=== PATIENT | female | born 1935 | race Caucasian/White ===

== ENCOUNTER → 2017-01-23 | Outpatient (CLI) | payer MEDICARE, OTHER ==
[~2017-01-23] MED LIST: ASPI81TA19; HYDR-3533 PO; LISI-519 PO; PERC5TAB12 PO; ZOFR4TAB3 SL
[2017-01-23 09:44] LABS: HEMATOCRIT 38.6 % (35.0-46.0); MEAN CELL VOLUME 87.3 FL (80.0-100.0); MEAN CORPUSCULAR HEMOGLOBIN 29.5 PG (27.0-34.0); MEAN CORPUSCULAR HGB CONC 33.9 % (32.0-36.0); PLATELET COUNT 241 TH/MM3 (150-450); RED BLOOD COUNT 4.42 MIL/MM3 (4.00-5.30); RED CELL DISTRIBUTION WIDTH 13.4 % (11.6-17.2); WHITE BLOOD COUNT 6.1 TH/MM3 (4.0-11.0)
[2017-01-23 09:46] LABS: BLOOD, URINE NEG (NEG); GLUCOSE,URINE NEG (NEG); KETONE, URINE NEG (NEG); NITRITE,URINE NEG (NEG); URINE COLOR LIGHT-YELLOW (YELLW/STRAW)
[2017-01-23 09:48] LABS: HEMO FLAGS AUTO DIFF
[2017-01-23 09:50] LABS: COMMENT (UR) CULT NOT INDICATED; CULTURE IF INDICATED CULT NOT INDICATED
[2017-01-23 10:07] LABS: CREATININE RANDOM URINE 67 MG/DL (27-300)
[2017-01-23 10:13] LABS: BASOPHILS 1 % (0-2); EOSINOPHILS 3 % (0-4); NEUTROPHIL # MANUAL DIFF 3.4 TH/MM3 (1.8-7.7); POLYS (SEG NEUTROPHILS) 55 % (16-70); WBC DIFF SAMPLE 100
[2017-01-23 10:14] LABS: PLATELET ESTIMATE SMEAR NORMAL (NORMAL); PLATELET MORPHOLOGY NORMAL (NORMAL); SCAN/DIFF FINAL DIFF MANUAL
[2017-01-23 10:17] LABS: MICRO ALBUMIN RANDOM URINE RAW LESS THAN 5.0 MG/L (0.0-30.0); MICROALBUMIN/CREAT RATIO RAND 7 MG/G CRE (0-30)
[2017-01-23 10:40] LABS: ALKALINE PHOSPHATASE 62 U/L (45-117); ALT (GPT) 23 U/L (10-53); ANION GAP 7 MEQ/L (5-15); AST (GOT) 19 U/L (15-37); BICARBONATE 30.7 MEQ/L (21.0-32.0); BLOOD UREA NITROGEN 16 MG/DL (7-18); CHLORIDE 103 MEQ/L (98-107); FREE T3 2.13 PG/ML (2.18-3.98); FREE T4 0.77 NG/DL (0.76-1.46); GLOMERULAR FILTRATION RATE 49 ML/MIN (>89); GLUCOSE,FASTING 90 MG/DL (74-99); POTASSIUM 4.4 MEQ/L (3.5-5.1); SODIUM (NA) 141 MEQ/L (136-145); TOTAL BILIRUBIN ADULT 0.7 MG/DL (0.2-1.0)
== END ==
LOC: CLAB 09:21
PROVIDERS: ATTEND Family Medicine
DX: E78.5 Hyperlipidemia, unspecified (principal); I10 Essential (primary) hypertension; E66.9 Obesity, unspecified
CPT/HCPCS: 36415; 80053; 81001; 82043; 82607; 84439; 84443; 84481; 85007; 85027

== ENCOUNTER → 2017-06-12 | Outpatient (CLI) | payer MEDICARE, OTHER ==
[2017-06-12 09:42] LABS: AUTOMATED NEUTROPHIL # 2.9 TH/MM3 (1.8-7.7); BASOPHIL # 0.2 TH/MM3 (0-0.2); BASOPHIL % 2.4 % (0.0-2.0); EOSINOPHIL # 0.3 TH/MM3 (0-0.4); EOSINOPHIL % 4.8 % (0.0-4.0); HEMATOCRIT 42.5 % (35.0-46.0); HEMO FLAGS DIFF FINAL; LYMPH % 38.7 % (9.0-44.0); LYMPHOCYTE # 2.4 TH/MM3 (1.0-4.8); MEAN CELL VOLUME 90.5 FL (80.0-100.0); MEAN CORPUSCULAR HEMOGLOBIN 30.1 PG (27.0-34.0); MEAN CORPUSCULAR HGB CONC 33.2 % (32.0-36.0); MONO % 8.2 % (0.0-8.0); NEUT % 45.9 % (16.0-70.0); PLATELET COUNT 207 TH/MM3 (150-450); RED BLOOD COUNT 4.69 MIL/MM3 (4.00-5.30); RED CELL DISTRIBUTION WIDTH 14.1 % (11.6-17.2); WHITE BLOOD COUNT 6.2 TH/MM3 (4.0-11.0)
[2017-06-12 10:06] LABS: ANION GAP 6 MEQ/L (5-15); AST (GOT) 21 U/L (15-37); BICARBONATE 31.8 MEQ/L (21.0-32.0); BLOOD UREA NITROGEN 25 MG/DL (7-18); CHLORIDE 103 MEQ/L (98-107); GLOMERULAR FILTRATION RATE 40 ML/MIN (>89); GLUCOSE,FASTING 90 MG/DL (74-99); POTASSIUM 4.6 MEQ/L (3.5-5.1); SODIUM (NA) 141 MEQ/L (136-145)
[2017-06-12 10:17] LABS: BACTERIA, URINE OCC /hpf; BLOOD, URINE TRACE (NEG); COMMENT (UR) CULTURE INDICATED; CULTURE IF INDICATED CULTURE INDICATED; GLUCOSE,URINE NEG (NEG); KETONE, URINE NEG (NEG); MUCUS URINE FEW /lpf (OCC); NITRITE,URINE NEG (NEG); PH, URINE 5.5 (5.0-8.5); SQUAMOUS EPITHELIAL CELL URINE <1 /hpf (0-5); URINE COLOR YELLOW (YELLW/STRAW)
[2017-06-12 10:31] LABS: ALKALINE PHOSPHATASE 55 U/L (45-117); ALT (GPT) 26 U/L (10-53); FREE T3 1.82 PG/ML (2.18-3.98); FREE T4 0.74 NG/DL (0.76-1.46); HDL CHOLESTEROL 83.3 MG/DL (40.0-60.0); LDL CHOLESTEROL 134 MG/DL (0-99); TOTAL BILIRUBIN ADULT 0.7 MG/DL (0.2-1.0)
[2017-06-12 10:58] LABS: MICRO ALBUMIN RANDOM URINE RAW 19.6 MG/L (0.0-30.0)
== END ==
LOC: CLAB 09:10
PROVIDERS: ATTEND Family Medicine
DX: E78.9 Disorder of lipoprotein metabolism, unspecified (principal); R53.83 Other fatigue; R82.90 Unspecified abnormal findings in urine
CPT/HCPCS: 36415; 80053; 80061; 81001; 82043; 82607; 84439; 84443; 84481; 85025; 87086

== ENCOUNTER → 2017-12-14 | Outpatient (CLI) | payer MEDICARE, OTHER ==
[2017-12-14 14:21] LABS: FOLATE GREATER THAN 20.0 NG/ML (3.1-17.5)
[2017-12-14 19:35] LABS: ALB/GLOB RATIO (SPE) 1.72 (1.39-2.23)
[2017-12-17 10:45] LABS: ANA SCREEN POS (NEG)
[2017-12-18 09:25] LABS: METHYLMALONIC ACID 0.27 nmol/mL (<=0.40)
[2017-12-19 03:51] LABS: NEURONAL NUCLEAR(HU) AB SCREEN FLUORESCENCE NOTED (NEGATIVE)
[2017-12-19 14:27] LABS: ANA PATTERN DIFFUSE
== END ==
LOC: CLAB 12:45
PROVIDERS: ATTEND Specialist
DX: G47.62 Sleep related leg cramps (principal); I67.89 Other cerebrovascular disease; M31.6 Other giant cell arteritis; A53.0 Latent syphilis, unspecified as early or late; E53.1 Pyridoxine deficiency; D50.8 Other iron deficiency anemias; G04.81 Other encephalitis and encephalomyelitis; G60.9 Hereditary and idiopathic neuropathy, unspecified; M60.9 Myositis, unspecified; M79.1 Myalgia
CPT/HCPCS: 36415; 82164; 82550; 82607; 82746; 83921; 84165; 84181; 84207; 84425; 85652; 86038; 86039; 86255; 86592

== ENCOUNTER 2017-12-31 19:44 | Emergency (ER) | payer MEDICARE, OTHER ==
[~2017-12-31 19:44] MED LIST changes: -GABA300C5 PO
[2017-12-31 19:57] VITALS: BP 168/72; PULSE 50; RESP 14; TEMP 98.7; O2SAT 96
--- NOTE | 2017-12-31 21:04 | RADRPT ---
EXAM DATE/TIME: 12/31/2017 20:17 [facility] COMPARISON: No previous studies available for comparison. INDICATIONS : Fall. Left central wrist pain. MEDICAL HISTORY : Hiatal hernia. SURGICAL HISTORY : Appendectomy. Cholecystectomy. Hysterectomy. ENCOUNTER: Initial ACUITY: 1 day PAIN SCORE: 6/10 LOCATION: Left middle wrist FINDINGS: Three view examination of the left wrist demonstrates no soft tissue swelling, dislocation, or fractu re. The carpal bones are in normal alignment. The joint spaces are maintained. Bony mineralization is normal. CONCLUSION: 1. No acute findings. Mychal Shoemaker MD on December 31, 2017 at 21:01 Board Certified Radiologist. This report was verified electronically.
--- NOTE | 2017-12-31 21:16 | RADRPT ---
EXAM DATE/TIME: 12/31/2017 20:43 [facility] COMPARISON: No previous studies available for comparison. INDICATIONS : Trauma, patient fell, hit head. RADIATION DOSE: 56.35 CTDIvol (mGy) MEDICAL HISTORY : Cardiovascular disease. Hypertension. SURGICAL HISTORY : None. ENCOUNTER: Initial ACUITY: 1 day PAIN SCALE: 4/10 LOCATION: cranial TECHNIQUE: Multiple contiguous axial images were obtained of the head. Using automated exposure control and adj ustment of the mA and/or kV according to patient size, radiation dose was kept as low as reasonably a chievable to obtain optimal diagnostic quality images. DICOM format image data is available electro nically for review and comparison. FINDINGS: CEREBRUM: The ventricles are normal for age. No evidence of midline shift, mass lesion, hemorrhage or acute in farction. No extra-axial fluid collections are seen. POSTERIOR FOSSA: The cerebellum and brainstem are intact. The 4th ventricle is midline. The cerebellopontine angle i s unremarkable. EXTRACRANIAL: The visualized portion of the orbits is intact. SKULL: The calvaria is intact. No evidence of skull fracture. CONCLUSION: Normal examination for a patient of this age. Mychal Shoemaker MD on December 31, 2017 at 21:12 Board Certified Radiologist. This report was verified electronically.
--- NOTE | 2017-12-31 21:19 | RADRPT ---
EXAM DATE/TIME: 12/31/2017 20:43 [facility] COMPARISON: No previous studies available for comparison. INDICATIONS : Trauma, patient fell, neck pain. RADIATION DOSE: 15.56 CTDIvol (mGy) MEDICAL HISTORY : Cardiovascular disease. Hypertension. SURGICAL HISTORY : None. ENCOUNTER: Initial ACUITY: 1 day PAIN SCALE: 4/10 LOCATION: neck TECHNIQUE: Volumetric scanning of the cervical spine was performed. Multiplanar reconstructions in the sagittal, coronal and oblique axial planes were performed. Using automated exposure control and adjustment o f the mA and/or kV according to patient size, radiation dose was kept as low as reasonably achievable to obtain optimal diagnostic quality images. DICOM format image data is available electronically f or review and comparison. FINDINGS: VERTEBRAE: Normal vertebral body height. ALIGNMENT: No evidence of subluxation. C2-C3: The bony spinal canal is normal in size. No evidence of disc bulge or herniation. The neural forami na are bilaterally patent. C3-C4: The bony spinal canal is normal in size. No evidence of disc bulge or herniation. The neural forami na are bilaterally patent. C4-C5: The bony spinal canal is normal in size. No evidence of disc bulge or herniation. The neural forami na are bilaterally patent. C5-C6: The bony spinal canal is normal in size. No evidence of disc bulge or herniation. The neural forami na are bilaterally patent. C6-C7: The bony spinal canal is normal in size. No evidence of disc bulge or herniation. The neural forami na are bilaterally patent. C7-T1: The bony spinal canal is normal in size. No evidence of disc bulge or herniation. The neural forami na are bilaterally patent. CONCLUSION: 1. No acute bony abnormality. No canal stenosis. Mychal Shoemaker MD on December 31, 2017 at 21:13 Board Certified Radiologist. This report was verified electronically.
--- NOTE | 2017-12-31 21:27 | RADRPT ---
EXAM DATE/TIME: 12/31/2017 20:25 [facility] COMPARISON: No previous studies available for comparison. INDICATIONS : Fall. Left shoulder pain. MEDICAL HISTORY : Hiatal hernia. SURGICAL HISTORY : Appendectomy. Cholecystectomy. Hysterectomy. ENCOUNTER: Initial ACUITY: 1 day PAIN SCORE: 3/10 LOCATION: Left shoulder FINDINGS: Multiple view examination of the left shoulder demonstrates no evidence of fracture or dislocation. The glenohumeral and acromioclavicular joints are maintained. There is normal range of motion betwee n internal and external rotation. Bony mineralization is normal. CONCLUSION: 1. No acute bony abnormality. Mychal Shoemaker MD on December 31, 2017 at 21:24 Board Certified Radiologist. This report was verified electronically.
[2017-12-31] MEDS ORDERED: GABA300C5 PO (23:26)
[2017-12-31 23:34] VITALS: BP 159/70
--- NOTE | 2017-12-31 23:36 | PD ---
HPI Chief Complaint: Fall Time Seen by Provider: 23:25 Travel History International Travel<30 days: No Contact w/Intl Traveler<30days: No Traveled to known affect area: No History of Present Illness HPI 82-year-old female presents for evaluation after mechanical fall. Prior to arrival the patient reports that she tripped at home on a box and fell, hitting her left arm against the ground and hitting her chin against the ground. There was no loss of consciousness. She is complaining of pain at the site of her chin, left wrist and left proximal arm where she has a skin tear. Pain is aching, mild, worse with movement. She denies any neck or back pain, injury to the teeth. She takes an aspirin on a regular basis. No other blood thinners. Last tetanus vaccination within 5 years. No other complaints. PFSH Past Medical History Arthritis: Yes Heart Rhythm Problems: No Cancer: No Cardiovascular Problems: Yes (HTN) High Cholesterol: Yes Chest Pain: No Congestive Heart Failure: No COPD: No Cerebrovascular Accident: No Diabetes: No Diminished Hearing: No Endocrine: No Gastrointestinal Disorders: Yes (HX GASTRIC ULCERS) GERD: No Glaucoma: No Genitourinary: No Headaches: No Hepatitis: No Hiatal Hernia: Yes (POSSIBLE ) Hypertension: Yes Immune Disorder: No Kidney Stones: No Neurologic: No Psychiatric: No Reproductive: No Respiratory: No Myocardial Infarction: No Renal Failure: No Seizures: No Sleep Apnea: No Thyroid Disease: No Ulcer: Yes (GASTRIC ) Tetanus Vaccination: < 5 Years Influenza Vaccination: Yes Menopausal: Yes Past Surgical History Abdominal Surgery: Yes AICD: No Appendectomy: Yes Body Medical Devices: NONE Cardiac Surgery: No Cholecystectomy: Yes Ear Surgery: No Endocrine Surgery: No Eye Surgery: No Genitourinary Surgery: No Gynecologic Surgery: Yes (HYSTERECTOMY) Hysterectomy: Yes Pacemaker: No Thoracic Surgery: No Tonsillectomy: Yes Other Surgery: Yes Social History Alcohol Use: Yes (occasionaly ) Tobacco Use: No Substance Use: No Allergies-Medications (Allergen,Severity, Reaction): Coded Allergies: morphine (Unverified Adverse Reaction, Severe, VOMITING, 05/29/17) Reported Meds & Prescriptions Reported Meds & Active Scripts Active Reported Gabapentin 300 Mg Cap 300 Mg PO HS Lisinopril 5 Mg Tab 2.5 Mg PO DAILY Aspir-Low (Aspirin) 81 Mg Tabdr Review of Systems Except as stated in HPI: all other systems reviewed are Neg Physical Exam Narrative GENERAL: Well-developed well-nourished female no acute distress SKIN: Warm and dry. There is a superficial skin tear to the proximal left arm. No suturable lacerations. HEAD: Atraumatic. Normocephalic. EYES: Pupils equal and round. No scleral icterus. No injection or drainage. ENT: No nasal bleeding or discharge. Mucous membranes pink and moist. NECK: Trachea midline. No JVD. CARDIOVASCULAR: Regular rate and rhythm. No murmur appreciated. RESPIRATORY: No accessory muscle use. Clear to auscultation. Breath sounds equal bilaterally. GASTROINTESTINAL: Abdomen soft, non-tender, nondistended. Hepatic and splenic margins not palpable. MUSCULOSKELETAL: Skin as noted above. There is no reproducible tenderness to palpation along the neck or back, arms. The patient maintains full range of motion of the upper extremities. NEUROLOGICAL: Awake and alert. No obvious cranial nerve deficits. Motor grossly within normal limits. Normal speech. Data Data Last Documented VS Vital Signs Date Time Temp Pulse Resp B/P (MAP) Pulse Ox O2 Delivery O2 Flow Rate FiO2 12/31/17 19:57 98.7 50 14 168/72 (104) [address] Brain W/O Iv Contrast(Rout) (12/31/17 ) Ct Cerv Spine W/O Contrast (12/31/17 ) Wrist, Complete ([id number]) (12/31/17 ) Shoulder, Complete (>2vws) (12/31/17 ) Ed Discharge Order (12/31/17 23:31) Wound Care (12/31/17 23:31) MDM Medical Decision Making Medical Screen Exam Complete: Yes Emergency Medical Condition: Yes Medical Record Reviewed: Yes Differential Diagnosis Skin tear, contusion, fracture Narrative Course CT imaging the brain and cervical spine as well as x-rays of the left wrist and shoulder were obtained in triage revealing no acute abnormalities. Local wound care was provided to the left arm. The patient is stable for discharge. Diagnosis Primary Impression: Skin tear of left upper extremity Additional Impressions: Left wrist sprain Chin contusion Departure Forms: Tests/Procedures, Work Release Enter return to work date: Jan 07, 2018 Additional Instructions: Wash the wound daily with soap and water and apply antibiotic cream and clean bandages. Take Tylenol for pain per dosing instructions on the bottle. Follow- up with primary care physician in 1-2 weeks. Return for any emergent medical conditions. Med/Other Pt SpecificInfo: Wound Care Disposition: 01 DISCHARGE HOME Condition: Stable Jose David Rose Dec 31, 2017 23:36
== END 2017-12-31 23:40 | disposition home or self-care (01) ==
LOC: NED 19:44 → NEPD 23:40
DX: S41.112A Laceration without foreign body of left upper arm, initial encounter (principal); S63.502A Unspecified sprain of left wrist, initial encounter; S00.83XA Contusion of other part of head, initial encounter; I10 Essential (primary) hypertension; E78.00 Pure hypercholesterolemia, unspecified; W18.09XA Striking against other object with subsequent fall, initial encounter; Y92.009 Unspecified place in unspecified non-institutional (private) residence as the place of occurrence of the external cause; Z88.5 Allergy status to narcotic agent; Z79.899 Other long term (current) drug therapy; E78.9 Disorder of lipoprotein metabolism, unspecified; R73.01 Impaired fasting glucose; R53.83 Other fatigue
CPT/HCPCS: 70450; 72125; 73030; 73110

== ENCOUNTER → 2017-12-31 | Outpatient (CLI) | payer MEDICARE ==
[~2017-12-31] MED LIST changes: +GABA300C5 PO
[2017-12-31 14:19] LABS: AUTOMATED NEUTROPHIL # 4.5 TH/MM3 (1.8-7.7); BASOPHIL % 0.3 % (0.0-2.0); EOSINOPHIL # 0.2 TH/MM3 (0-0.4); EOSINOPHIL % 2.5 % (0.0-4.0); HEMATOCRIT 41.5 % (35.0-46.0); HEMOGLOBIN 13.8 GM/DL (11.6-15.3); LYMPH % 33.6 % (9.0-44.0); LYMPHOCYTE # 2.7 TH/MM3 (1.0-4.8); MEAN CELL VOLUME 89.7 FL (80.0-100.0); MEAN CORPUSCULAR HEMOGLOBIN 29.8 PG (27.0-34.0); MEAN CORPUSCULAR HGB CONC 33.2 % (32.0-36.0); MEAN PLATELET VOLUME 8.6 FL (7.0-11.0); MONO % 6.6 % (0.0-8.0); MONOCYTE # 0.5 TH/MM3 (0-0.9); PLATELET COUNT 246 TH/MM3 (150-450); RED BLOOD COUNT 4.63 MIL/MM3 (4.00-5.30); RED CELL DISTRIBUTION WIDTH 13.2 % (11.6-17.2)
[2017-12-31 14:30] LABS: BACTERIA, URINE OCC /hpf; BILIRUBIN, URINE NEG (NEG); BLOOD, URINE NEG (NEG); GLUCOSE,URINE NEG (NEG); KETONE, URINE NEG (NEG); MUCUS URINE FEW /lpf (OCC); NITRITE,URINE NEG (NEG); URINE COLOR YELLOW (YELLW/STRAW); URINE LEUKOCYTE ESTERASE MOD (NEG)
[2017-12-31 14:53] LABS: ALBUMIN 3.9 GM/DL (3.4-5.0); AST (GOT) 19 U/L (15-37); BICARBONATE 31.4 MEQ/L (21.0-32.0); BLOOD UREA NITROGEN 15 MG/DL (7-18); CALCIUM 8.7 MG/DL (8.5-10.1); CHLORIDE 103 MEQ/L (98-107); CHOLESTEROL 294 MG/DL (120-200); CREATININE 1.14 MG/DL (0.50-1.00); GLOMERULAR FILTRATION RATE 46 ML/MIN (>89); GLUCOSE,FASTING 85 MG/DL (74-99); SODIUM (NA) 141 MEQ/L (136-145); TRIGLYCERIDES 91 MG/DL (42-150)
[2017-12-31 15:18] LABS: ALKALINE PHOSPHATASE 64 U/L (45-117); ALT (GPT) 25 U/L (10-53); CHOLESTEROL/ HDL RATIO 3.68 RATIO; FREE T4 0.71 NG/DL (0.76-1.46); HDL CHOLESTEROL 79.8 MG/DL (40.0-60.0); LDL CHOLESTEROL 196 MG/DL (0-99); TOTAL BILIRUBIN ADULT 0.8 MG/DL (0.2-1.0); TOTAL PROTEIN 7.6 GM/DL (6.4-8.2)
[2017-12-31 16:14] LABS: HEMOGLOBIN A1C 5.9 % (4.3-6.0)
== END ==
LOC: CLAB 13:41
PROVIDERS: ATTEND Family Medicine
DX: E78.9 Disorder of lipoprotein metabolism, unspecified (principal); R73.01 Impaired fasting glucose; R53.83 Other fatigue
CPT/HCPCS: 36415; 80053; 80061; 81001; 82043; 82607; 83036; 84439; 84443; 84481; 85025

== ENCOUNTER 2018-01-12 14:57 | Emergency (ER) | payer MEDICARE, OTHER ==
[~2018-01-12] VITALS: Ht 162.6 cm; Wt 68.0 kg
[~2018-01-12 14:57] MED LIST changes: -ASPI81TA19; +ASPI81TA19 PO; +GABA300C5 PO; -HYDR-3533 PO; -PERC5TAB12 PO; -ZOFR4TAB3 SL
[2018-01-12 15:04] VITALS: BP 129/78; PULSE 51; RESP 18; TEMP 98.9; O2SAT 96
[2018-01-12 15:30] VITALS: BP 169/70; PULSE 58; RESP 18; O2SAT 95
[2018-01-12 15:49] VITALS: BP 169/70; PULSE 51; RESP 20; O2SAT 97
[2018-01-12 15:53] VITALS: PULSE 49; RESP 20; O2SAT 97
[2018-01-12] MEDS ORDERED: methylPREDNISolone SOD SUCC 125 MG/2 ML VIAL IV PUSH ONE (16:00)
[2018-01-12] MEDS ORDERED: SODIUM CHLORIDE 0.9% FLUSH 10 ML FLUSH IVF PRN (16:00)
--- NOTE | 2018-01-12 16:07 | PD ---
HPI . Right rib pain Chief Complaint: Respiratory Symptoms Time Seen by Provider: 15:32 Travel History International Travel<30 days: No Contact w/Intl Traveler<30days: No Traveled to known affect area: No History of Present Illness HPI This patient presents with chief complaint of right rib pain associated with wheezing, cough, rhinorrhea. Onset was about 2 days ago. Symptoms have been persistent since that time. No modifying factors. She states she has had previous bronchospasm with colds. She denies a known history of asthma or COPD. The patient also reports a fall couple weeks ago. She is curious as to whether or not her right rib pain might be secondary to that fall. However, the rib pain did not start until several months after the fall and the rib pain is associated with cough, rhinorrhea and wheezing. PFSH Past Medical History Arthritis: Yes Heart Rhythm Problems: Yes (SINUS BRADYCARDIA ) Cancer: No Cardiovascular Problems: Yes (HTN, HEART MURMUR ) High Cholesterol: Yes Chest Pain: No Congestive Heart Failure: No COPD: No Cerebrovascular Accident: No Diabetes: No Diminished Hearing: No Endocrine: No Gastrointestinal Disorders: Yes (HX GASTRIC ULCERS) GERD: No Glaucoma: No Genitourinary: No Headaches: No Hepatitis: No Hiatal Hernia: Yes (POSSIBLE ) Hypertension: Yes Immune Disorder: No Kidney Stones: No Neurologic: No Psychiatric: No Reproductive: No Respiratory: No Myocardial Infarction: No Renal Failure: No Seizures: No Sleep Apnea: No Thyroid Disease: No Ulcer: Yes (GASTRIC ) Menopausal: Yes Past Surgical History Abdominal Surgery: Yes (GALLBLADDER REMOVED ) AICD: No Appendectomy: Yes Body Medical Devices: NONE Cardiac Surgery: No Cholecystectomy: Yes Ear Surgery: No Endocrine Surgery: No Eye Surgery: No Genitourinary Surgery: No Gynecologic Surgery: Yes (HYSTERECTOMY) Hysterectomy: Yes Pacemaker: No Thoracic Surgery: No Tonsillectomy: Yes Other Surgery: Yes Social History Alcohol Use: Yes (occasionaly ) Tobacco Use: No Substance Use: No Allergies-Medications (Allergen,Severity, Reaction): Coded Allergies: morphine (Unverified Adverse Reaction, Severe, VOMITING, 05/29/17) Reported Meds & Prescriptions Reported Meds & Active Scripts Active Reported Keflex (Cephalexin) 500 Mg Cap 500 Mg PO Q8H 10 Days Lipitor (Atorvastatin Calcium) 20 Mg Tab 20 Mg PO HS Lisinopril 2.5 Mg Tab 2.5 Mg PO DAILY Gabapentin 300 Mg Cap 300 Mg PO HS Aspir-Low (Aspirin) 81 Mg Tabdr 81 Mg PO DAILY Review of Systems Except as stated in HPI: all other systems reviewed are Neg General / Constitutional: No: Fever, Chills HENT: Positive: Rhinorrhea Cardiovascular: Positive: Chest Pain or Discomfort Respiratory: Positive: Cough, Shortness of Breath, Wheezing Physical Exam Narrative GENERAL: Awake and alert and in no acute distress. SKIN: warm/dry. HEAD: Normocephalic. Atraumatic. EYES: Pupils equal and round. No scleral icterus. No injection or drainage. ENT: No nasal bleeding or discharge. Mucous membranes pink and moist. NECK: Trachea midline. Full range of motion without pain.. CARDIOVASCULAR: Regular rate and rhythm. Heart sounds normal. RESPIRATORY: No accessory muscle use. No bruising of the chest wall. Diffuse expiratory wheezing. GASTROINTESTINAL: Abdomen soft. Nontender. Bowel sounds present. Nondistended. MUSCULOSKELETAL: No obvious deformities. NEUROLOGICAL: Awake and alert. No obvious cranial nerve deficits. Motor grossly within normal limits. Normal speech. PSYCHIATRIC: Appropriate mood and affect; insight and judgment normal. Distress Data Data Last Documented VS Vital Signs Date Time Temp Pulse Resp B/P (MAP) Pulse Ox O2 Delivery O2 Flow Rate FiO2 01/12/18 16:31 95 21 01/12/18 15:53 49 20 Room Air 01/12/18 15:04 98.9 Orders Orders Electrocardiogram (01/12/18 ) Complete Blood Count With Diff (01/12/18 15:50) Comprehensive Metabolic Panel (01/12/18 15:50) B-Type Natriuretic Peptide (01/12/18 15:50) Troponin I (01/12/18 15:50) Iv Access Insert/Monitor (01/12/18 15:50) Ecg Monitoring (01/12/18 15:50) Oximetry (01/12/18 15:50) Chest, Single Ap (01/12/18 15:50) Sodium Chloride 0.9% Flush (Ns Flush) (01/12/18 16:00) Methylprednisolone So Succ Inj (Solumedr (01/12/18 16:00) Albuterol-Ipratropium Neb (Duoneb Neb) (01/12/18 16:00) Albuterol-Ipratropium Neb (Duoneb Neb) (01/12/18 17:15) Labs Laboratory Tests Test 01/12/18 16:04 White Blood Count 5.4 TH/MM3 Red Blood Count 4.17 MIL/MM3 Hemoglobin 12.4 GM/DL Hematocrit 37.1 % Mean Corpuscular Volume 89.0 FL Mean Corpuscular Hemoglobin 29.6 PG Mean Corpuscular Hemoglobin Concent 33.3 % Red Cell Distribution Width 13.2 % Platelet Count 254 TH/MM3 Mean Platelet Volume 8.0 FL Neutrophils (%) (Auto) 46.2 % Lymphocytes (%) (Auto) 31.9 % Monocytes (%) (Auto) 15.4 % Eosinophils (%) (Auto) 3.5 % Basophils (%) (Auto) 3.0 % Neutrophils # (Auto) 2.5 TH/MM3 Lymphocytes # (Auto) 1.7 TH/MM3 Monocytes # (Auto) 0.8 TH/MM3 Eosinophils # (Auto) 0.2 TH/MM3 Basophils # (Auto) 0.2 TH/MM3 CBC Comment DIFF FINAL Differential Comment Blood Urea Nitrogen 19 MG/DL Creatinine 1.24 MG/DL Random Glucose 101 MG/DL Total Protein 6.9 GM/DL Albumin 3.4 GM/DL Calcium Level 8.5 MG/DL Alkaline Phosphatase 59 U/L Aspartate Amino Transf (AST/SGOT) 20 U/L Alanine Aminotransferase (ALT/SGPT) 17 U/L Total Bilirubin 0.5 MG/DL Sodium Level 140 MEQ/L Potassium Level 4.0 MEQ/L Chloride Level 106 MEQ/L Carbon Dioxide Level 28.8 MEQ/L Anion Gap 5 MEQ/L Estimat Glomerular Filtration Rate 41 ML/MIN Troponin I LESS THAN 0.02 NG/ML B-Type Natriuretic Peptide 106 PG/ML MDM Medical Decision Making Medical Screen Exam Complete: Yes Emergency Medical Condition: Yes Medical Record Reviewed: Yes (PMH of HTN, HL, CAD) Interpretation(s) EKG shows a sinus rhythm with a rate of 51. She has got a left bundle branch block. It is unchanged from previous. Differential Diagnosis Differential diagnosis of dyspnea includes but is not limited to congestive heart failure, pneumonia, wheezing, pneumothorax, pulmonary embolism Narrative Course This patient presents with cough, wheezing and right-sided chest pain. She is wheezing on exam. I will treat her here with Solu-Medrol and stacked nebs. Last Impressions Chest X-Ray 01/12/18 1550 Signed Impressions: Service Date/Time: Friday, January 12, 2018 15:58 - CONCLUSION: No acute disease. Mychal Shoemaker MD CBC & BMP Diagram 01/12/18 16:04 Total Protein 6.9, Albumin 3.4, Calcium Level 8.5, Alkaline Phosphatase 59, Aspartate Amino Transf (AST/SGOT) 20, Alanine Aminotransferase (ALT/SGPT) 17, Total Bilirubin 0.5 trop < 0.02 BNP 106 Patient has completed her nebulizer therapy. She states her breathing is a little bit better. She continues to have diffuse coarse expiratory wheezing. The patient has now had 2 sets of stacked nebs. Her breath sounds are now clear. I have discussed disposition. I have offered overnight observation. She prefers to try to take care of this at home. She has never used an inhaler. Will consult respiratory therapy for MDI instructions. Diagnosis Primary Impression: Shortness of breath Additional Impressions: Chest pain Qualified Codes: R07.9 - Chest pain, unspecified Bronchospasm Patient Instructions: Bronchospasm (DC), General Instructions Med/Other Pt SpecificInfo: Prescription(s) given Scripts Albuterol 18 GM Inh (Ventolin Hfa 18 GM Inh) 90 Mcg/Act Aer 2 PUFF INH Q4-6H Y for SHORTNESS OF BREATH, #1 INHALER 0 Refills Prov: Eliz Cano MD 01/12/18 Prednisone (Prednisone) 50 Mg Tab 50 MG PO DAILY for 5 Days, #5 TAB 0 Refills Prov: Eliz Cano MD 01/12/18 Condition: Stable Eliz Cano MD Jan 12, 2018 16:07
[2018-01-12 16:18] LABS: AUTOMATED NEUTROPHIL # 2.5 TH/MM3 (1.8-7.7); BASOPHIL # 0.2 TH/MM3 (0-0.2); EOSINOPHIL # 0.2 TH/MM3 (0-0.4); EOSINOPHIL % 3.5 % (0.0-4.0); HEMATOCRIT 37.1 % (35.0-46.0); HEMOGLOBIN 12.4 GM/DL (11.6-15.3); LYMPH % 31.9 % (9.0-44.0); LYMPHOCYTE # 1.7 TH/MM3 (1.0-4.8); MEAN CORPUSCULAR HEMOGLOBIN 29.6 PG (27.0-34.0); MEAN CORPUSCULAR HGB CONC 33.3 % (32.0-36.0); MONO % 15.4 % (0.0-8.0); MONOCYTE # 0.8 TH/MM3 (0-0.9); NEUT % 46.2 % (16.0-70.0); PLATELET COUNT 254 TH/MM3 (150-450); RED BLOOD COUNT 4.17 MIL/MM3 (4.00-5.30); RED CELL DISTRIBUTION WIDTH 13.2 % (11.6-17.2); WHITE BLOOD COUNT 5.4 TH/MM3 (4.0-11.0)
[2018-01-12] MEDS: RESP: ALBUTEROL 2.5 MG/IPRATROPIUM 0.5 MG NEB (SCH) INH ×2 (16:28→17:16)
[2018-01-12 16:31] VITALS: O2SAT 95
--- NOTE | 2018-01-12 16:39 | RADRPT ---
EXAM DATE/TIME: 01/12/2018 15:58 [facility] COMPARISON: No previous studies available for comparison. INDICATIONS : Patient complains of lower chest pain and shortness of breath status post fall. MEDICAL HISTORY : None. SURGICAL HISTORY : None. ENCOUNTER: Subsequent ACUITY: 1 week PAIN SCORE: 3/10 LOCATION: chest FINDINGS: A single view of the chest demonstrates the lungs to be symmetrically aerated without evidence of mas s, infiltrate or effusion. The cardiomediastinal contours are unremarkable. Osseous structures are intact. CONCLUSION: No acute disease. Mychal Shoemaker MD on January 12, 2018 at 16:36 Board Certified Radiologist. This report was verified electronically.
[2018-01-12] MEDS ORDERED: LIPI20TA PO (16:42)
[2018-01-12] MEDS ORDERED: LISI2.5T3 PO (16:42)
[2018-01-12] MEDS ORDERED: CEPH-460 PO (16:42)
[2018-01-12 16:47] LABS: ALBUMIN 3.4 GM/DL (3.4-5.0); AST (GOT) 20 U/L (15-37); BICARBONATE 28.8 MEQ/L (21.0-32.0); BLOOD UREA NITROGEN 19 MG/DL (7-18); CALCIUM 8.5 MG/DL (8.5-10.1); CHLORIDE 106 MEQ/L (98-107); CREATININE 1.24 MG/DL (0.50-1.00); GLOMERULAR FILTRATION RATE 41 ML/MIN (>89); GLUCOSE,RANDOM 101 MG/DL (74-106); SODIUM (NA) 140 MEQ/L (136-145)
[2018-01-12 16:49] LABS: ALT (GPT) 17 U/L (10-53)
[2018-01-12 16:52] LABS: ALKALINE PHOSPHATASE 59 U/L (45-117); TOTAL BILIRUBIN ADULT 0.5 MG/DL (0.2-1.0); TOTAL PROTEIN 6.9 GM/DL (6.4-8.2); TROPONIN I LESS THAN 0.02 NG/ML (0.02-0.05)
[2018-01-12] MEDS ORDERED: VENTAER INH (17:57)
[2018-01-12] MEDS ORDERED: PRED50 PO (17:57)
--- NOTE | 2018-01-13 12:23 | EKG ---
Date Performed: 01/12/2018 Time Performed: 15:12:24 PTAGE: 82 years EKG: SINUS BRADYCARDIA WITH FIRST DEGREE AV BLOCK LEFT BUNDLE BRANCH BLOCK ABNORMAL ECG PREVIOUS TRACING : 08/03/2016 13.12 Since the previous tracing, no significant change noted DOCTOR: Valerio Lamb Interpretating Date/Time 01/13/2018 12:18:48
== END 2018-01-12 18:32 | disposition home or self-care (01) ==
LOC: NEPC 14:57
DX: R06.02 Shortness of breath (principal); R07.9 Chest pain, unspecified; J98.01 Acute bronchospasm; R94.31 Abnormal electrocardiogram [ECG] [EKG]; M19.90 Unspecified osteoarthritis, unspecified site; I10 Essential (primary) hypertension; E78.00 Pure hypercholesterolemia, unspecified; I44.7 Left bundle-branch block, unspecified
CPT/HCPCS: 71045; 80053; 83880; 84484; 85025; 93005; 94640; 94664; 96374; 99285; J2930

== ENCOUNTER → 2018-02-13 | Outpatient (CLI) | payer MEDICARE, OTHER ==
[~2018-02-13] MED LIST changes: +CEPH-460 PO; +LIPI20TA PO; -LISI-519 PO; +LISI2.5T3 PO; +PRED50 PO; +VENTAER INH
== END ==
LOC: CLAB 10:36
PROVIDERS: ATTEND Internal Medicine Interventional Cardiology
DX: R06.02 Shortness of breath (principal); R07.89 Other chest pain; R42 Dizziness and giddiness; I20.8 Other forms of angina pectoris; Z79.899 Other long term (current) drug therapy
CPT/HCPCS: 36415; 82550

== ENCOUNTER → 2018-02-20 | Outpatient (CLI) | payer MEDICARE, OTHER ==
[2018-02-20 10:03] LABS: CALCIUM 8.9 MG/DL (8.5-10.1)
[2018-02-20 10:07] LABS: PHOSPHORUS 3.4 MG/DL (2.5-4.9)
== END ==
LOC: CLAB 09:31
PROVIDERS: ATTEND Orthopaedic Surgery Sports Medicine
DX: M81.8 Other osteoporosis without current pathological fracture (principal); E55.9 Vitamin D deficiency, unspecified; M85.9 Disorder of bone density and structure, unspecified; M81.0 Age-related osteoporosis without current pathological fracture
CPT/HCPCS: 36415; 82306; 82310; 84100

== ENCOUNTER → 2018-03-07 | Outpatient (CLI) | payer MEDICARE, OTHER ==
[2018-03-07 10:52] LABS: HEMATOCRIT 39.7 % (35.0-46.0); HEMOGLOBIN 13.1 GM/DL (11.6-15.3); MEAN CELL VOLUME 90.2 FL (80.0-100.0); MEAN CORPUSCULAR HEMOGLOBIN 29.7 PG (27.0-34.0); MEAN PLATELET VOLUME 8.8 FL (7.0-11.0); PLATELET COUNT 212 TH/MM3 (150-450); RED BLOOD COUNT 4.41 MIL/MM3 (4.00-5.30); RED CELL DISTRIBUTION WIDTH 13.6 % (11.6-17.2); WHITE BLOOD COUNT 6.5 TH/MM3 (4.0-11.0)
[2018-03-07 11:16] LABS: FREE T4 0.65 NG/DL (0.76-1.46)
[2018-03-07 11:44] LABS: WESTERGREN SEDIMENTATION RATE 12 mm/hr (0-30)
== END ==
LOC: CLAB 10:06
PROVIDERS: ATTEND Internal Medicine Interventional Cardiology
DX: R53.83 Other fatigue (principal); I25.118 Atherosclerotic heart disease of native coronary artery with other forms of angina pectoris; I47.1 Supraventricular tachycardia; R07.89 Other chest pain; R06.02 Shortness of breath; M79.1 Myalgia; Z79.899 Other long term (current) drug therapy
CPT/HCPCS: 36415; 84439; 84443; 84480; 85027; 85652